=== PATIENT | female | born 1950 | race Two or more races ===

== ENCOUNTER 2018-02-19 05:19 | Outpatient (CLI) | payer SELFPAY ==
[~2018-02-19 05:19] MED LIST: vitamin PO
[2018-02-19 08:28] LABS: HEMOGLOBIN A1C 6.1 % (4.5-6.2)
[2018-02-19 08:39] LABS: CHOL/HDL RATIO 3.79 (0.00-4.99)
== END 2018-02-19 23:59 | disposition home or self-care (01) ==
LOC: HW HEART 05:19
DX: Z13.6 Encounter for screening for cardiovascular disorders (principal); R00.2 Palpitations
CPT/HCPCS: 36415